=== PATIENT | male | born 1965 | race Caucasian/White ===

== ENCOUNTER 2018-04-12 19:42 | Emergency (ER) | payer OTHER ==
[~2018-04-12] VITALS: Ht 167.6 cm; Wt 77.1 kg
[2018-04-12 20:00] VITALS: BP 148/92
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
--- NOTE | 2018-04-12 20:09 | NUR ---
BIBA TO ER BED 5
[2018-04-12] MEDS ORDERED: DIAZEPAM 5 MG TAB PO ONE (20:20)
[2018-04-12] MEDS ORDERED: KETOROLAC 30 MG/ML VIAL IM ONE (20:20)
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
--- NOTE | 2018-04-12 21:06 | NUR ---
ER MD AT BEDSIDE TO REMOVE C-COLLAR AND TO SPEAK WITH PT. PT TOLERATED WELL.
[2018-04-12 21:35] VITALS: BP 141/74
--- NOTE | 2018-04-12 21:35 | NUR ---
Patient discharged with v/s stable. Written and verbal after care instructions given and explained. Patient alert, oriented and verbalized understanding of instructions. Ambulatory with steady gait. All questions addressed prior to discharge. ID band removed. Patient advised to follow up with PMD. Rx of VALIUM, NAPROSYN given. Patient educated on indication of medication including possible reaction and side effects. Opportunity to ask questions provided and answered.
== END 2018-04-12 21:35 | disposition home or self-care (01) ==
LOC: MED 19:42
DX: S16.1XXA Strain of muscle, fascia and tendon at neck level, initial encounter (principal); M54.5 Low back pain; K74.60 Unspecified cirrhosis of liver; F17.210 Nicotine dependence, cigarettes, uncomplicated; V49.49XA Driver injured in collision with other motor vehicles in traffic accident, initial encounter; Y93.89 Activity, other specified; Y92.89 Other specified places as the place of occurrence of the external cause; Y99.8 Other external cause status
CPT/HCPCS: 72100; 72125; 96372; 99284; J1885